=== PATIENT | male | born 1995 | race Caucasian/White ===

== ENCOUNTER 2019-04-10 07:40 | Emergency (ER) | payer OTHER ==
[~2019-04-10] VITALS: Ht 188 cm; Wt 88.2 kg
[2019-04-10 07:50] VITALS: BP 154/90
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
[2019-04-10] MEDS ORDERED: CEPHALEXIN 500 MG CAP PO ONE (08:30)
[2019-04-10] MEDS ORDERED: HYDROcodone/APAP 5/325 MG 1 TAB TAB PO ONE (08:30)
[2019-04-10] MEDS ORDERED: LIDOCAINE MPF 1% 5mL VIAL INJ ONE (08:55)
--- NOTE | 2019-04-10 09:03 | NUR ---
ANNABELLA GAUTAM AT BEDSIDE PERFORMING PROCEDURE.
[2019-04-10] MEDS ORDERED: BACITRACIN OINT 500 UNITS/GM PKT TP ONE ×2 (09:15→09:22)
[2019-04-10 09:18] VITALS: BP 135/86
--- NOTE | 2019-04-10 09:18 | NUR ---
CLEANSED WOUND WITH NS, APPLIED BACITRACIN, AND COVERED WITH BANDAID
--- NOTE | 2019-04-10 09:19 | NUR ---
Patient discharged with v/s stable. Written and verbal after care instructions given and explained. Patient alert, oriented and verbalized understanding of instructions. Ambulatory with steady gait. All questions addressed prior to discharge. ID band removed. Patient advised to follow up with PMD. Rx of KEFLEX given. Patient educated on indication of medication including possible reaction and side effects. Opportunity to ask questions provided and answered. PT STATED HE WOULD USE UBER TO GET HOME AND HAVE FRIEND [employer] HIS CAR.
== END 2019-04-10 09:18 | disposition home or self-care (01) ==
LOC: MED 07:40
DX: L03.011 Cellulitis of right finger (principal); M79.89 Other specified soft tissue disorders
CPT/HCPCS: 26010; 99284; J2001